=== PATIENT | female | born 1985 | race Caucasian/White ===

== ENCOUNTER 2017-01-21 09:50 | Day surgery (SDC) | payer BC ==
[2017-01-17 10:55] VITALS: BMI 32.1
[2017-01-21] MEDS ORDERED: PROPOFOL 20 ML ONE ×2 (10:51→11:41)
[2017-01-21 12:42] VITALS: BP 112/74; PULSE 71; TEMP 98
--- NOTE | 2017-01-23 13:03 | PATH ---
Surgical Pathology Report Patient Name: KALYANI BROOKS [facility]. Rec. #: [id number] /Age/Gender: 1985 (Age: 31) / F Account: [id number] Location: [facility]-ENDOSCOPY Taken: 01/21/2017 Received: 01/21/2017 Reported: 01/23/2017 Physicians: Raf Tran M.D. Specimen(s) Received A: BX DUODENUM B: BX ANTRUM C: GASTRIC POLYP Clinical History GERD Rule out celiac disease, gastritis, gastric polyp Final Diagnosis A. DUODENUM, BIOPSY: DUODENAL MUCOSA WITH NO PATHOLOGIC FINDINGS. Note: Features suggestive of celiac disease and are identified in this biopsy. B. ANTRUM, BIOPSY: MILD CHRONIC GASTRITIS. IMMUNOSTAIN IS NEGATIVE FOR H. PYLORI ORGANISMS. C. GASTRIC POLYP, BIOPSY: POLYPOID GASTRIC BODY-TYPE MUCOSA WITH MILD CHRONIC INFLAMMATION. IMMUNOSTAIN IS NEGATIVE FOR H. PYLORI ORGANISMS. Electronically Signed Antonia Vazquez M.D. Gross Description A. Received in formalin, labeled "duodenum" are 2 fischer, irregular portions of soft tissue averaging 0.3 cm. in greatest dimension. The specimens are submitted in toto in one cassette. B. Received in formalin, labeled "antrum" are 2 fischer, irregular portions of soft tissue averaging 0.3 cm. in greatest dimension. The specimens are submitted in toto in one cassette. C. Received in formalin, labeled "gastric polyp" is a ficsher, irregular portion of soft tissue measuring 0.1 cm. in greatest dimension. The specimen is submitted in toto in one cassette. /01/21/2017 saudi01/21/2017
== END 2017-01-21 12:46 | disposition home or self-care (01) ==
LOC: FASU-ENDO 09:50
PROVIDERS: ATTEND Internal Medicine Gastroenterology
PROC: 0DB98ZX Excision of Duodenum, Via Natural or Artificial Opening Endoscopic, Diagnostic (ICD-10-PCS; principal; 2017-01-21 11:45)
PROC: 0DB68ZX Excision of Stomach, Via Natural or Artificial Opening Endoscopic, Diagnostic (ICD-10-PCS; 2017-01-21 11:45)
DX: K31.7 Polyp of stomach and duodenum (principal); K29.50 Unspecified chronic gastritis without bleeding; R10.13 Epigastric pain
CPT/HCPCS: 84703; 88305-TC; 88342-TC